=== PATIENT | male | born 1965 | race Caucasian/White ===

== ENCOUNTER 2017-02-22 14:26 | Emergency (ER) | payer MEDICARE, OTHER ==
[~2017-02-22 14:26] MED LIST: FLAGYL500 MG PO; IBUPROFEN400 MG PO; LEVAQUIN500 MG PO; PROTONIX 40 MG40 M1 PO; SENOKOT-S TABL1 EACH PO; TYLENOL 325MG325 MG PO
[2017-02-22 17:34] LABS: HEMOGLOBIN 14.9 gm/dl (14.0-17.5); RED BLOOD COUNT 4.84 M/UL (4.20-5.50); WHITE BLOOD COUNT 7.1 K/UL (4.5-11.0)
[2017-02-22 17:50] LABS: BUN/CREATININE RATIO 13 (0-10)
== END 2017-02-23 02:00 | disposition short-term general hospital (02) ==
LOC: ER1 14:26
PROVIDERS: Emergency Medicine
DX: F20.9 Schizophrenia, unspecified (principal); F31.9 Bipolar disorder, unspecified; F15.10 Other stimulant abuse, uncomplicated; F13.10 Sedative, hypnotic or anxiolytic abuse, uncomplicated
CPT/HCPCS: 36415; 80053; 80307; 81001; 85025; 93005; 99285; G0480; J2250

== ENCOUNTER 2017-03-24 12:32 | Emergency (ER) | payer MEDICARE, OTHER ==
[~2017-03-24] VITALS: Ht 172.7 cm; Wt 77.1 kg
[2017-03-24 14:01] LABS: RED BLOOD COUNT 4.57 M/UL (4.20-5.50); WHITE BLOOD COUNT 8.1 K/UL (4.5-11.0)
[2017-03-24 14:28] LABS: BUN/CREATININE RATIO 20 (0-10)
== END 2017-03-24 19:00 | disposition home or self-care (01) ==
LOC: ER1 12:32
PROVIDERS: Emergency Medicine
DX: L03.115 Cellulitis of right lower limb (principal); F19.10 Other psychoactive substance abuse, uncomplicated; Z79.899 Other long term (current) drug therapy
CPT/HCPCS: 36415; 80053; 80307; 82550; 82553; 83874; 84484; 85025; 86140; 87040; 93005; 96365; 96366; 96375; 96376; 99283; J2270; J2405; J3370; J7030; J7070

== ENCOUNTER 2021-05-19 13:12 | Inpatient (IN) | payer MEDICARE, OTHER ==
[~2021-05-19] VITALS: Ht 180.3 cm; Wt 68.0 kg
[~2021-05-19 13:12] MED LIST changes: +AMOX TR-K CLV1 EAC4 PO; +BUPRENORPHIN-N1 EACH SL; +DOXYCYCLINE HY100 MG PO; +GABAPENTIN600 MG PO; +IBUPROFEN800 MG PO; +PAXIL40 MG PO; +PREDNISONE 20 M20 MG PO; +PROAIR HFA8.5 GM INH; +PROTONIX40 MG PO; +PROVENTIL HFA6.7 GM INH; +SEROQUEL200 MG PO
[2021-05-19 15:24] LABS: HEMOGLOBIN 14.1 gm/dl (14.0-17.5); RED BLOOD COUNT 4.9 M/UL (4.20-5.50); WHITE BLOOD COUNT 13.4 K/UL (4.5-11.0)
[2021-05-19 15:48] LABS: BUN/CREATININE RATIO 24 (0-10)
[2021-05-20 07:23] LABS: HEMOGLOBIN 14.4 gm/dl (14.0-17.5); RED BLOOD COUNT 4.96 M/UL (4.20-5.50); WHITE BLOOD COUNT 10.7 K/UL (4.5-11.0)
[2021-05-20 07:44] LABS: BUN/CREATININE RATIO 23 (0-10)
[2021-05-21 10:41] LABS: HEMOGLOBIN 14.1 gm/dl (14.0-17.5); RED BLOOD COUNT 4.57 M/UL (4.20-5.50)
[2021-05-21 10:59] LABS: WHITE BLOOD COUNT 19.6 K/UL (4.5-11.0)
[2021-05-21 12:27] LABS: BUN/CREATININE RATIO 27 (0-10)
[2021-05-22 06:35] LABS: HEMOGLOBIN 14.3 gm/dl (14.0-17.5); RED BLOOD COUNT 4.7 M/UL (4.20-5.50)
[2021-05-22 06:42] LABS: WHITE BLOOD COUNT 11.9 K/UL (4.5-11.0)
[2021-05-22 06:55] LABS: BUN/CREATININE RATIO 31 (0-10)
[2021-05-23 08:53] LABS: WHITE BLOOD COUNT 12.6 K/UL (4.5-11.0)
[2021-05-23 08:54] LABS: HEMOGLOBIN 16.5 gm/dl (14.0-17.5); RED BLOOD COUNT 5.33 M/UL (4.20-5.50)
[2021-05-23 09:21] LABS: BUN/CREATININE RATIO 24 (0-10)
--- NOTE | 2021-05-24 09:42 | NUR ---
PATIENTS IV LOOKS FINE, BUT WILL NOT FLUSH. PROVIDER IS AWARE AND STATES PATIENT DOESN'T NEED AN IV. PROVIDER STATED HE WILL CHANGE IV DECKADRON TO PO.
--- NOTE | 2021-05-24 11:16 | NUR ---
PATIENT REFUSED 3 TIMES TO HAVE LABS DRAWN. PROVIDER NOTIFIED. LAB SAYS THEY WILL CANCEL LABS AT THIS TIME. WILL CONTINUE TO MONITOR.
[2021-05-24] MEDS ORDERED: DECADRON6 MG PO (13:35)
[2021-05-24] MEDS ORDERED: COMBIVENT RESPIM4 GM INH (13:35)
[2021-05-24] MEDS ORDERED: SEROPHENE50 MG PO (13:35)
[2021-05-24] MEDS ORDERED: ASPIRIN EC81 MG PO (13:45)
[2021-05-30 17:11] LABS: AMPHETAMINE Negative (.); AMPHETAMINES CONFIRMATION Positive (.); MDA Negative (.); MDEA Negative (.); MDMA Negative (.); METHAMPHETAMINE 161 ng/mL (.)
[2021-06-06 02:06] LABS: CANNABIDIOL 1.5 ng/mL (.); CANNABINOID CONFIRMATION Positive (.); CANNABINOL Negative (.); CARBOXY-THC 236.9 ng/mL (.); HYDROXY-THC 5.1 ng/mL (.)
== END 2021-05-24 16:41 | disposition home or self-care (01) | DRG 177 ==
LOC: ER1 13:12 → CDU 18:16 → MED SURG 4 05-20 16:32
PROVIDERS: Physician Assistant; ADMIT Internal Medicine
PROC: XW033E5 Introduction of Remdesivir Anti-infective into Peripheral Vein, Percutaneous Approach, New Technology Group 5 (ICD-10-PCS; principal; 2021-05-19)
PROC: 3E0333Z Introduction of Anti-inflammatory into Peripheral Vein, Percutaneous Approach (ICD-10-PCS; 2021-05-19)
PROC: 8E0ZXY6 Isolation (ICD-10-PCS; 2021-05-19)
DX: U07.1 COVID-19 (principal); J12.82 Pneumonia due to coronavirus disease 2019; J96.01 Acute respiratory failure with hypoxia; E87.1 Hypo-osmolality and hyponatremia; B19.20 Unspecified viral hepatitis C without hepatic coma; F31.9 Bipolar disorder, unspecified; F41.9 Anxiety disorder, unspecified; F19.10 Other psychoactive substance abuse, uncomplicated; F17.210 Nicotine dependence, cigarettes, uncomplicated; Z79.82 Long term (current) use of aspirin; Z90.49 Acquired absence of other specified parts of digestive tract
CPT/HCPCS: 36415; 36600; 71045; 80053; 80307; 82550; 82553; 82728; 82803; 83036; 83615; 83735; 83874; 83880; 84439; 84443; 84484; 85025; 85027; 85379; 86140; 93005; 94640; 94664; 94760; 96372; 96374; 99285; G0378; J1100; J1650; J1956; J3486; J7030; Q9967; U0002

== ENCOUNTER → 2021-08-12 | Outpatient (CLI) | payer MEDICARE, OTHER ==
[~2021-08-12] MED LIST changes: +ASPIRIN EC81 MG PO; +COMBIVENT RESPIM4 GM INH; +DECADRON6 MG PO; +SEROPHENE50 MG PO
== END ==
LOC: KOH-I 11:26
DX: M25.571 Pain in right ankle and joints of right foot (principal)
CPT/HCPCS: 73610